=== PATIENT | female | born 1965 | race American Indian/Alaskan Native ===

== ENCOUNTER 2020-08-12 10:11 | Emergency (ER) | payer BC, OTHER ==
[2020-08-12 10:48] VITALS: BP 111/73
[2020-08-12 11:46] LABS: Bilirubin,Urine NEG (Negative); Blood,Urine NEG (Negative); Color,Urine Yellow (Yellow); Hyaline Casts,Urine 1 /LPF; Mucus,Urine FEW /HPF
[2020-08-12 11:51] LABS: Amphetamine Screen,Urine Negative; Benzodiazepines Screen,Urine Negative; Cannabinoid Screen,Urine Negative; Cocaine Screen,Urine Negative; Methadone Screen,Urine Negative; Opiate Screen,Urine Negative
--- NOTE | 2020-08-12 12:25 | Emergency Department Report ---
ED General Adult HPI - General Chief complaint: Anxiety Stated complaint: ANXIETY Time Seen by Provider: 08/12/20 12:17 Source: patient Mode of arrival: Ambulatory Limitations: No Limitations - History of Present Illness Initial comments: Patient is a 55-year-old female with significant past medical history presents to emergency department for evaluation of insomnia and intermittent "heartburn" for the past 7 days. Patient states symptoms are so severe they are causing her severe anxiety. Denies homicidal or suicidal ideation. - Related Data Home Medications Medication Instructions Recorded Confirmed Last Taken Metoprolol [Lopressor TAB] 100 mg PO BID 08/26/18 08/27/18 08/25/18 hydroCHLOROthiazide [HCTZ] 12.5 mg PO QDAY 08/26/18 08/26/18 08/25/18 Previous Rx's Medication Instructions Recorded Last Taken Type Aspirin [Aspirin BABY CHEW TAB] 81 mg PO QDAY #30 tab.chew 08/28/18 Unknown Rx AtorvaSTATin [Lipitor] 40 mg PO QHS #30 tablet 08/28/18 Unknown Rx traMADoL [Ultram 50 MG tab] 50 mg PO Q6HR PRN #7 tablet 08/28/18 Unknown Rx Famotidine [Pepcid] 20 mg PO BID #60 tablet 08/12/20 Unknown Rx Zolpidem [Ambien] 5 mg PO QHS PRN #10 tablet 08/12/20 Unknown Rx Allergies Allergy/AdvReac Type Severity Reaction Status Date / Time morphine Allergy Itching Verified 08/26/18 08:51 ED Review of Systems ROS: Stated complaint: ANXIETY Other details as noted in HPI Comment: All other systems reviewed and negative ED Past Medical Hx - Past Medical History Previous Medical History?: Yes Hx Hypertension: Yes Hx Congestive Heart Failure: No Hx Diabetes: No Hx Asthma: No Hx COPD: No - Surgical History Additional Surgical History: HYSTO - Social History Smoking Status: Never Smoker Substance Use Type: None - Medications Home Medications: Home Medications Medication Instructions Recorded Confirmed Last Taken Type Metoprolol [Lopressor TAB] 100 mg PO BID 08/26/18 08/27/18 08/25/18 History hydroCHLOROthiazide [HCTZ] 12.5 mg PO QDAY 08/26/18 08/26/18 08/25/18 History Aspirin [Aspirin BABY CHEW TAB] 81 mg PO QDAY #30 tab.chew 08/28/18 Unknown Rx AtorvaSTATin [Lipitor] 40 mg PO QHS #30 tablet 08/28/18 Unknown Rx traMADoL [Ultram 50 MG tab] 50 mg PO Q6HR PRN #7 tablet 08/28/18 Unknown Rx Famotidine [Pepcid] 20 mg PO BID #60 tablet 08/12/20 Unknown Rx Zolpidem [Ambien] 5 mg PO QHS PRN #10 tablet 08/12/20 Unknown Rx ED Physical Exam - General Limitations: No Limitations General appearance: alert, in no apparent distress - Head Head exam: Present: atraumatic, normocephalic - Eye Eye exam: Present: normal appearance - ENT ENT exam: Present: mucous membranes moist - Neck Neck exam: Present: normal inspection - Respiratory Respiratory exam: Present: normal lung sounds bilaterally. Absent: respiratory distress - Cardiovascular Cardiovascular Exam: Present: regular rate, normal rhythm. Absent: systolic murmur, diastolic murmur, rubs, gallop - GI/Abdominal GI/Abdominal exam: Present: soft, normal bowel sounds - Extremities Exam Extremities exam: Present: normal inspection - Back Exam Back exam: Present: normal inspection - Neurological Exam Neurological exam: Present: alert, oriented X3 - Psychiatric Psychiatric exam: Present: normal affect, normal mood - Skin Skin exam: Present: warm, dry, intact, normal color. Absent: rash ED Course Vital Signs 08/12/20 10:46 Temperature 97.7 F Pulse Rate 71 Respiratory 20 Rate Blood Pressure 111/73 O2 Sat by Pulse 99 Oximetry - Reevaluation(s) Reevaluation #1: 08/12/20 15:46 Patient treated with Xanax p.o., Maalox p.o., Pepcid p.o. with relief of symptoms. On reevaluation, patient states she feels better. Patient states she discussed with mental health counselor outpatient versus inpatient therapy, patient prefers outpatient. ED Medical Decision Making - Lab Data Result diagrams: 08/12/20 12:04 08/12/20 12:04 Labs 08/12/20 08/12/20 08/12/20 12:04 12:04 12:04 WBC RBC Hgb Hct MCV MCH MCHC RDW Plt Count Lymph % (Auto) Bartholomew % (Auto) Eos % (Auto) Baso % (Auto) Lymph # (Auto) Bartholomew # (Auto) Eos # (Auto) Baso # (Auto) Seg Neutrophils % Seg Neutrophils # Sodium 140 Potassium 3.4 L Chloride 102.6 Carbon Dioxide 28 Anion Gap 13 BUN 11 Creatinine 0.6 Estimated GFR > 60 BUN/Creatinine Ratio 18 Glucose 113 H Calcium 9.1 Total Bilirubin Direct Bilirubin Indirect Bilirubin AST ALT Alkaline Phosphatase Troponin T Total Protein Albumin Albumin/Globulin Ratio Lipase Urine Color Urine Turbidity Urine pH Ur Specific [place] Urine Protein Urine Glucose (UA) Urine Ketones Urine Blood Urine Nitrite Urine Bilirubin Urine Urobilinogen Ur Leukocyte Esterase Urine WBC (Auto) Urine RBC (Auto) U Epithel Cells (Auto) Hyaline Casts Urine Mucus Salicylates < 0.3 L Urine Opiates Screen Urine Methadone Screen Acetaminophen 5.0 L Ur Barbiturates Screen Ur Phencyclidine Scrn Ur Amphetamines Screen U Benzodiazepines Scrn Urine Cocaine Screen U Marijuana (THC) Screen Drugs of Abuse Note Plasma/Serum Alcohol 08/12/20 08/12/20 08/12/20 12:04 12:04 14:45 WBC 4.1 L RBC 4.41 Hgb 11.4 Hct 35.1 MCV 80 MCH 26 L MCHC 32 RDW 15.9 H Plt Count 199 Lymph % (Auto) 40.1 H Bartholomew % (Auto) 9.1 H Eos % (Auto) 0.6 Baso % (Auto) 0.5 Lymph # (Auto) 1.6 Bartholomew # (Auto) 0.4 Eos # (Auto) 0.0 Baso # (Auto) 0.0 Seg Neutrophils % 49.7 Seg Neutrophils # 2.0 Sodium Potassium Chloride Carbon Dioxide Anion Gap BUN Creatinine Estimated GFR BUN/Creatinine Ratio Glucose Calcium Total Bilirubin Direct Bilirubin Indirect Bilirubin AST ALT Alkaline Phosphatase Troponin T < 0.010 Total Protein Albumin Albumin/Globulin Ratio Lipase Urine Color Urine Turbidity Urine pH Ur Specific [place] Urine Protein Urine Glucose (UA) Urine Ketones Urine Blood Urine Nitrite Urine Bilirubin Urine Urobilinogen Ur Leukocyte Esterase Urine WBC (Auto) Urine RBC (Auto) U Epithel Cells (Auto) Hyaline Casts Urine Mucus Salicylates Urine Opiates Screen Urine Methadone Screen Acetaminophen Ur Barbiturates Screen Ur Phencyclidine Scrn Ur Amphetamines Screen U Benzodiazepines Scrn Urine Cocaine Screen U Marijuana (THC) Screen Drugs of Abuse Note Plasma/Serum Alcohol < 0.01 08/12/20 08/12/20 08/12/20 14:45 Unknown Unknown WBC RBC Hgb Hct MCV MCH MCHC RDW Plt Count Lymph % (Auto) Bartholomew % (Auto) Eos % (Auto) Baso % (Auto) Lymph # (Auto) Bartholomew # (Auto) Eos # (Auto) Baso # (Auto) Seg Neutrophils % Seg Neutrophils # Sodium Potassium Chloride Carbon Dioxide Anion Gap BUN Creatinine Estimated GFR BUN/Creatinine Ratio Glucose Calcium Total Bilirubin 0.40 Direct Bilirubin < 0.2 Indirect Bilirubin 0.2 AST 23 ALT 24 Alkaline Phosphatase 93 Troponin T Total Protein 6.9 Albumin 4.3 Albumin/Globulin Ratio 1.7 Lipase 31 Urine Color Yellow Urine Turbidity Clear Urine pH 6.0 Ur Specific [place] 1.024 Urine Protein 100 mg/dl Urine Glucose (UA) Neg Urine Ketones Neg Urine Blood Neg Urine Nitrite Neg Urine Bilirubin Neg Urine Urobilinogen 2.0 Ur Leukocyte Esterase Tr Urine WBC (Auto) 2.0 Urine RBC (Auto) 2.0 U Epithel Cells (Auto) 5.0 Hyaline Casts 1 Urine Mucus Few Salicylates Urine Opiates Screen Negative Urine Methadone Screen Negative Acetaminophen Ur Barbiturates Screen Negative Ur Phencyclidine Scrn Negative Ur Amphetamines Screen Negative U Benzodiazepines Scrn Negative Urine Cocaine Screen Negative U Marijuana (THC) Screen Negative Drugs of Abuse Note Disclamer Plasma/Serum Alcohol Vital Signs 08/12/20 10:46 Temperature 97.7 F Pulse Rate 71 Respiratory 20 Rate Blood Pressure 111/73 O2 Sat by Pulse 99 Oximetry - EKG Data -: EKG Interpreted by Me (Sinus rhythm at 76, no ST-T changes, normal QRS as read by me) Critical care attestation.: If time is entered above; I have spent that time in minutes in the direct care of this critically ill patient, excluding procedure time. ED Disposition Clinical Impression: Abdominal pain, Insomnia, Anxiety state, unspecified Disposition: DC-01 TO HOME OR SELFCARE Is pt being admited?: No Condition: Stable Instructions: Abdominal Pain, Adult, Insomnia Prescriptions: Zolpidem [Ambien] 5 mg PO QHS PRN #10 tablet PRN Reason: Sleep Famotidine [Pepcid] 20 mg PO BID #60 tablet Referrals: PRIMARY CARE, [Primary Care Provider] - 3-5 Days [facility] [Outside] - 3-5 Days
[2020-08-12 12:48] LABS: Basophils % (Auto) 0.5 % (0.0-1.8); Eosinophils % (Auto) 0.6 % (0.0-4.3); Hematocrit 35.1 % (30.3-42.9); Hemoglobin 11.4 gm/dl (10.1-14.3); Lymphocytes # (Auto) 1.6 K/mm3 (1.2-5.4); Lymphocytes % (Auto) 40.1 % (13.4-35.0); Mean Corpuscular HGB Conc 32 % (30-34); Mean Corpuscular Volume 80 fl (79-97); Monocytes # (Auto) 0.4 K/mm3 (0.0-0.8); Monocytes % (Auto) 9.1 % (0.0-7.3); Platelet Count 199 K/mm3 (140-440); Red Blood Count 4.41 M/mm3 (3.65-5.03); Red Cell Distribution Width 15.9 % (13.2-15.2)
[2020-08-12 12:53] LABS: Blood Urea Nitrogen 11 mg/dL (7-17); Calcium 9.1 mg/dL (8.4-10.2); Hemolysis Index 0
[2020-08-12 13:07] LABS: BUN/Creatinine Ratio 18
[2020-08-12] MEDS: FAMOTIDINE 20 MG TAB PO ONE (14:25)
[2020-08-12] MEDS: ALUM-MAG HYDROXIDE-SIMETHICONE 200-200-20MG/5ML ORAL LIQD 30 ML PO ONE (14:25)
[2020-08-12] MEDS: ALPRAZolam 0.5 MG TAB PO ONE (14:25)
[2020-08-12] MEDS: POTASSIUM CHLORIDE ER 20 MEQ TAB PO ONE (14:25)
[2020-08-12 15:23] LABS: Alanine Aminotransferase 24 units/L (7-56); Albumin 4.3 g/dL (3.9-5)
[2020-08-12 15:25] LABS: Bilirubin,Direct < 0.2 mg/dL (0-0.2)
== END 2020-08-12 16:54 | disposition home or self-care (01) ==
LOC: ED 10:11
DX: R10.9 Unspecified abdominal pain (principal); F41.9 Anxiety disorder, unspecified; G47.00 Insomnia, unspecified; I10 Essential (primary) hypertension; Z79.82 Long term (current) use of aspirin; Z79.899 Other long term (current) drug therapy; Z88.6 Allergy status to analgesic agent
CPT/HCPCS: 36415; 80048; 80076; 80307; 80320; 81001; 83690; 84484; 85025; 93005; G0480

== ENCOUNTER 2020-11-18 08:39 | Emergency (ER) | payer SELFPAY ==
--- NOTE | 2020-11-18 09:03 | Emergency Department Report ---
ED General Adult HPI - General Stated complaint: HEAD PAIN PUI?: No Time Seen by Provider: 11/18/20 08:54 Source: patient, EMS Mode of arrival: Ambulatory Limitations: No Limitations - History of Present Illness Initial comments: Patient is a 55-year-old -[place] female that comes to the emergency room today complaining of a headache. She states that she had a headache yesterday took some [id number]-gqnyucn medicine and did not go to work and she felt a little bit better. Today she got up had a headache took some [id number] medicine, the pain got better and she went to work. However she got to work and developed a headache again. She states the headache is more on the left side. She has nausea and some light sensitivity. Patient is neurologically intact. Her blood pressure is normal. Patient does have a history of migraines in the past, however she states that she is not had them in years. Patient denies any trauma or fall, or other sort of head injury. Patient denies any chest pain or shortness of breath. Patient denies fever or chills. Patient denies vomiting or diarrhea. Patient is neurologically intact on exam in ER. -: Gradual, days(s) Location: head Radiation: non-radiation Quality: aching Consistency: constant Improves with: none Worsens with: none Associated Symptoms: headaches, nausea/vomiting (Nausea only), other (Light sensitive). denies: denies other symptoms, confusion, chest pain, cough, diaphoresis, fever/chills, loss of appetite, malaise, rash, seizure, shortness of breath, syncope, weakness Treatments Prior to Arrival: none - Related Data Previous Rx's Medication Instructions Recorded Last Taken Type Butalb/Acetaminophen/Caffeine 1 cap PO Q8HR PRN #10 cap 11/18/20 Unknown Rx [Fioricet 50-300-40 mg CAP] carvediloL [Coreg] 25 mg PO BID #30 11/18/20 Unknown Rx hydroCHLOROthiazide [HCTZ] 25 mg PO QDAY #30 11/18/20 Unknown Rx Allergies Allergy/AdvReac Type Severity Reaction Status Date / Time morphine Allergy Itching Verified 08/26/18 08:51 ED Review of Systems ROS: Stated complaint: HEAD PAIN Other details as noted in HPI Comment: All other systems reviewed and negative ED Past Medical Hx - Past Medical History Previous Medical History?: Yes Hx Hypertension: Yes Hx CVA: No Hx Heart Attack/AMI: No Hx Congestive Heart Failure: No Hx Diabetes: No Hx Deep Vein Thrombosis: No Hx Pulmonary Embolism: No Hx GERD: No Hx Liver Disease: No Hx Renal Disease: No Hx of Cancer: No Hx Sickle Cell Disease: No Hx Arthritis: No Hx Headaches / Migraines: Yes Hx Seizures: No Hx Kidney Stones: No Hx Psychiatric Treatment: No Hx Asthma: Yes Hx COPD: No Hx Tuberculosis: No Hx Dementia: No Hx HIV: No - Surgical History Past Surgical History?: Yes Additional Surgical History: total HYSTerectomy - Family History Family history: no significant - Social History Smoking Status: Never Smoker Substance Use Type: None - Medications Home Medications: Home Medications Medication Instructions Recorded Confirmed Last Taken Type Butalb/Acetaminophen/Caffeine 1 cap PO Q8HR PRN #10 cap 11/18/20 Unknown Rx [Fioricet 50-300-40 mg CAP] carvediloL [Coreg] 25 mg PO BID #30 11/18/20 Unknown Rx hydroCHLOROthiazide [HCTZ] 25 mg PO QDAY #30 11/18/20 Unknown Rx ED Physical Exam - General General appearance: alert, in no apparent distress - Head Head exam: Present: atraumatic, normocephalic - Eye Eye exam: Present: normal appearance - ENT ENT exam: Present: mucous membranes moist - Neck Neck exam: Present: normal inspection - Respiratory Respiratory exam: Present: normal lung sounds bilaterally. Absent: respiratory distress - Cardiovascular Cardiovascular Exam: Present: regular rate, normal rhythm. Absent: systolic murmur, diastolic murmur, rubs, gallop - GI/Abdominal GI/Abdominal exam: Present: soft, normal bowel sounds - Extremities Exam Extremities exam: Present: normal inspection - Back Exam Back exam: Present: normal inspection - Neurological Exam Neurological exam: Present: alert, oriented X3 - Psychiatric Psychiatric exam: Present: normal affect, normal mood - Skin Skin exam: Present: warm, dry, intact, normal color. Absent: rash ED Course Vital Signs 11/18/20 11/18/20 09:02 10:05 Temperature 97.8 F Pulse Rate 58 L 55 L Respiratory 20 22 Rate Blood Pressure 180/80 166/79 O2 Sat by Pulse 100 Oximetry - Reevaluation(s) Reevaluation #1: 11/18/20 11:23 Primary care is [facility] patient states she is almost out of her blood pressure medicines. She takes Coreg and HCTZ ED Medical Decision Making - Radiology Data Radiology results: report reviewed, image reviewed nap - Medical Decision Making VS per RN 180/80 on arrival to ER medicated with fioricet for pain Vital Signs 11/18/20 11/18/20 09:02 10:05 Temperature 97.8 F Pulse Rate 58 L 55 L Respiratory 20 22 Rate Blood Pressure 180/80 166/79 O2 Sat by Pulse 100 Oximetry 1030 on reexam pain has diminished with Fioricet -she now rates the pain a 6 out of 10 1100 patient sleeping and without complaints of pain. CT scan with no acute process Blood pressure remains normal. Patient remains neurologically intact. Patient being discharged home with her daughter. She is being discharged with medication refills for her blood pressure as well as Fioricet as needed for her headaches. She is being given a referral to primary care as well as neurology given her acute on chronic headaches. Patient verbalizes understanding of discharge plan of care. - Differential Diagnosis ro intracranial etio of headache v migraine Critical care attestation.: If time is entered above; I have spent that time in minutes in the direct care of this critically ill patient, excluding procedure time. ED Disposition Clinical Impression: Chronic hypertension, Headache, Medication refill Disposition: - TO HOME OR SELFCARE Is pt being admited?: No Does the pt Need Aspirin: No Condition: Stable Instructions: Migraine Headache, [id number], Managing Your Hypertension, Hypertension (ED) Additional Instructions: stay well hydrated take your bp meds as instructed medication given to you today is for headaches use only as needed follow up with pcp for reeevaluation next week referral to our pcp was provided here Prescriptions: carvediloL [Coreg] 25 mg PO BID #30 Butalb/Acetaminophen/Caffeine [Fioricet 50-300-40 mg CAP] 1 cap PO Q8HR PRN #10 cap PRN Reason: Pain, Moderate (4-6) hydroCHLOROthiazide [HCTZ] 25 mg PO QDAY #30 Referrals: JONO ARREOLA MD [Staff Physician] - 3-5 Days PRIMARY CARE, [Primary Care Provider] - 3-5 Days MELISSA GOLDBERG MD [Staff Physician] - 3-5 Days Forms: Work/School Release Form(ED) Time of Disposition: 10:18
[2020-11-18] MEDS ORDERED: BUTALB/ACETAMINOPHEN/CAFFEINE TAB PO ONE (09:07)
[2020-11-18] MEDS ORDERED: ONDANSETRON 4 MG ODT TAB PO ONE (09:07)
[2020-11-18 10:08] VITALS: BP 166/79
--- NOTE | 2020-11-18 11:07 | Cat Scan Report ---
CT BRAIN: 11/18/2020 INDICATION / CLINICAL INFORMATION: headache. COMPARISON: None available. FINDINGS: BRAIN/INTRACRANIAL STRUCTURES: Unenhanced CT images of the brain demonstrate no evidence of acute int racranial abnormality. Ventricles and sulci are normal in size and shape. There is no evidence of acute ischemic injury, hemorrhage, or mass. There are no abnormal extra-axial fluid collections. EXTRACRANIAL STRUCTURES: Unremarkable. IMPRESSION: No acute abnormality. All CT scans at this location are performed using dose reduction to ALARA by means of automated expos ure control. Signer Name: Clinton Jo MD Signed: 11/18/2020 11:02 AM Workstation Name: [id number]
== END 2020-11-18 12:07 | disposition home or self-care (01) ==
LOC: ED 08:39
DX: I10 Essential (primary) hypertension (principal); Z76.0 Encounter for issue of repeat prescription; G43.909 Migraine, unspecified, not intractable, without status migrainosus; Z90.710 Acquired absence of both cervix and uterus; Z88.6 Allergy status to analgesic agent
CPT/HCPCS: 70450; Q0162

== ENCOUNTER 2021-07-30 02:27 | Emergency (ER) | payer OTHER, BC ==
--- NOTE | 2021-07-30 11:29 | Emergency Department Report ---
ED General Adult HPI - General Chief complaint: Neuro Symptoms/Deficit Stated complaint: NUMBNESS Time Seen by Provider: 07/30/21 11:04 Source: patient Mode of arrival: Ambulatory Limitations: No Limitations - History of Present Illness Initial comments: Chief complaint: Numbness in my toe getting worse HPI: This is a 55-year-old female with history of hypertension, CHF who presents with right leg numbness. 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 She has had persistent numbness worse over the last several months. She had taken gabapentin in the past. Nerve conduction study in 2016 was inconclusive. Her PCP desired to perform another nerve conduction study for diagnosis. Due to health insurance change she will have to obtain a new PCP. History of chronic back pain after injury 10 years ago. Has had numbness from back to the entire right leg at times. She is worried that her symptoms are getting worse. No bowel or bladder incontinence. No trauma. No fever. History of glucose intolerance. Note official diagnosis of diabetes mellitus. -: Gradual, year(s) (5 years of numbness after nerve injury related to hysterectomy, right toe numbness has worsened over the last 2 months.) Consistency: constant Improves with: none Worsens with: none Associated Symptoms: denies other symptoms - Related Data Previous Rx's Medication Instructions Recorded Last Taken Type Butalb/Acetaminophen/Caffeine 1 cap PO Q8HR PRN #10 cap 11/18/20 Unknown Rx [Fioricet 50-300-40 mg CAP] carvediloL [Coreg] 25 mg PO BID #30 11/18/20 Unknown Rx hydroCHLOROthiazide [HCTZ] 25 mg PO QDAY #30 11/18/20 Unknown Rx Gabapentin 100 mg PO Q8HR #42 capsule 07/30/21 Unknown Rx Allergies Allergy/AdvReac Type Severity Reaction Status Date / Time morphine Allergy Itching Verified 08/26/18 08:51 ED Review of Systems ROS: Stated complaint: NUMBNESS Other details as noted in HPI Comment: All other systems reviewed and negative Constitutional: denies: chills, fever, malaise Respiratory: denies: cough, shortness of breath Cardiovascular: denies: chest pain Gastrointestinal: denies: abdominal pain, nausea, vomiting Neurological: paresthesias ED Past Medical Hx - Past Medical History Previous Medical History?: Yes Hx Hypertension: Yes Hx CVA: No Hx Heart Attack/AMI: No Hx Congestive Heart Failure: No Hx Diabetes: No Hx Deep Vein Thrombosis: No Hx Pulmonary Embolism: No Hx GERD: No Hx Liver Disease: No Hx Renal Disease: No Hx Sickle Cell Disease: No Hx Arthritis: No Hx Headaches / Migraines: Yes Hx Seizures: No Hx Kidney Stones: No Hx Psychiatric Treatment: No Hx Asthma: Yes Hx COPD: No Hx Tuberculosis: No Hx Dementia: No Hx HIV: No - Surgical History Past Surgical History?: Yes Additional Surgical History: total HYSTerectomy - Social History Smoking Status: Never Smoker Substance Use Type: None - Medications Home Medications: Home Medications Medication Instructions Recorded Confirmed Last Taken Type Butalb/Acetaminophen/Caffeine 1 cap PO Q8HR PRN #10 cap 11/18/20 Unknown Rx [Fioricet 50-300-40 mg CAP] carvediloL [Coreg] 25 mg PO BID #30 11/18/20 Unknown Rx hydroCHLOROthiazide [HCTZ] 25 mg PO QDAY #30 11/18/20 Unknown Rx Gabapentin 100 mg PO Q8HR #42 capsule 07/30/21 Unknown Rx ED Physical Exam - General Limitations: No Limitations General appearance: alert, in no apparent distress - Head Head exam: Present: atraumatic, normocephalic - Eye Eye exam: Present: normal appearance - ENT ENT exam: Present: mucous membranes moist - Neck Neck exam: Present: normal inspection, full ROM - Respiratory Respiratory exam: Present: normal lung sounds bilaterally. Absent: respiratory distress, wheezes, rales, rhonchi - Cardiovascular Cardiovascular Exam: Present: regular rate, normal rhythm, normal heart sounds. Absent: systolic murmur, diastolic murmur, rubs, gallop - GI/Abdominal GI/Abdominal exam: Present: soft, normal bowel sounds. Absent: distended, tenderness, guarding, rebound - Extremities Exam Extremities exam: Present: normal inspection - Expanded Lower Extremity Exam Right Hip exam: Present: normal inspection, full ROM Upper Leg exam: Present: normal inspection, full ROM Knee exam: Present: normal inspection, full ROM Lower Leg exam: Present: normal inspection, full ROM Ankle exam: Present: normal inspection, full ROM Foot/Toe exam: Present: normal inspection, full ROM. Absent: tenderness, swelling, laceration, ecchymosis, deformity, dislocation, erythema, amputation, puncture wound, foreign body, calcaneal tenderness, tenderness at base of 5th metatarsal Neuro vascular tendon exam: Present: no vascular compromise (2+ DP pulse patient able to flex and extend great toe) - Back Exam Back exam: Present: normal inspection - Neurological Exam Neurological exam: Present: alert, oriented X3 - Psychiatric Psychiatric exam: Present: normal affect, normal mood - Skin Skin exam: Present: warm, dry, intact, normal color. Absent: rash ED Course Vital Signs 07/30/21 02:33 Temperature 98.2 F Pulse Rate 64 Respiratory 18 Rate Blood Pressure 174/76 O2 Sat by Pulse 100 Oximetry ED Medical Decision Making - Medical Decision Making Peripheral neuropathy with history of nerve injury status post hysterectomy differential diagnosis includes sciatica no evidence of CVA or peripheral vascular disease. Referred to orientation and mobility specialist neurosurgeon Dr. Hyde. Also referred to internal physician for primary care. Prescribed gabapentin. I do not suspect cord compression or cauda equina. Critical care attestation.: If time is entered above; I have spent that time in minutes in the direct care of this critically ill patient, excluding procedure time. ED Disposition Clinical Impression: Peripheral neuropathy Disposition: 01 HOME / SELF CARE / HOMELESS Is pt being admited?: No Does the pt Need Aspirin: No Condition: Stable Instructions: Peripheral Neuropathy Prescriptions: Gabapentin 100 mg PO Q8HR #42 capsule Referrals: KAMILA HYDE II, MD [Staff Physician] - 3-5 Days JONO ARREOLA MD [Staff Physician] - 3-5 Days
[2021-07-30 11:47] VITALS: BP 140/81
== END 2021-07-30 14:31 | disposition home or self-care (01) ==
LOC: ED 02:27
DX: G62.9 Polyneuropathy, unspecified (principal); Z88.6 Allergy status to analgesic agent; I10 Essential (primary) hypertension; J45.909 Unspecified asthma, uncomplicated
CPT/HCPCS: 99282